=== PATIENT | female | born 1935 | race Caucasian/White ===

== ENCOUNTER 2016-09-27 11:32 | Observation (INO) ==
--- NOTE | 2016-09-27 14:32 | Hospitalist History & Physical ---
Assessment and Plan - Time spent with patient Time spent with patient: Greater than 30 minutes (1) Abdominal pain Status: Acute Assessment and plan: Patient will be admitted. Will provide IV fluids, IV analgesics and antiemetics as needed. Will consult GI for further evaluation. Current Visit: Yes (2) Hypertension Status: Chronic Assessment and plan: She is currently hemodynamically stable and blood pressure is well controlled. Will continue her current home regimen. Current Visit: No Qualifiers: Hypertension type: essential hypertension Qualified Code(s): I10 - Essential (primary) hypertension History of Present Illness Chief complaint: Abdominal pain History of present illness: Ms. Benavidez is a 81 year old white female who states that she was having some mid abdominal discomfort since last Sunday. She went to the emergency room at [facility] yesterday where she was admitted for further evaluation. During that evaluation she had CT scanning which was abnormal as referred to in the report. She denies any fever, chills, chest pain, shortness breath, nausea , vomiting, recent weight loss or weight gain, melena, hematochezia, hematemesis , dysuria, hematuria, urinary frequency urgency incontinence, seizures, syncope , diarrhea. She does have some chronic constipation and her last bowel movement was approximately 2 days ago. We were contacted to accept in transfer for further GI evaluation. Home Medications Medication Instructions Recorded Confirmed Type Atenolol 50 mg PO DAILY 12/01/14 09/27/16 History Omeprazole [Prilosec] 20 mg PO DAILY 12/01/14 09/27/16 History Fluticasone 50 Mcg Nasal [place] 1 spray BOTH NARES DAILY nasal 12/08/14 Rx [Flonase Nasal [place]] spray Magnesium Oxide 400 mg PO BID tablet 12/08/14 09/27/16 Rx amLODIPine [Norvasc] 5 mg PO DAILY tablet 12/08/14 09/27/16 Rx Diclofenac Sodium Tab [Voltaren] 75 mg PO DAILY 09/27/16 09/27/16 History Allergies Allergy/AdvReac Type Severity Reaction Status Date / Time No Known Allergies Allergy Verified 12/01/14 16:41 Medical,Surgical,& Family Hx - Medical History Cardio: History of: Hypertension HEENT: History of: Eye Problem (to have cataract sugery in February), Dental Problems (upper dentures) Gastrointestinal: History of: GERD - Surgical History Cardiac Surgeries: Patient Denies: Cardiac Surgery Thoracic Surgeries: Patient denies;: Organ Transplant Neurologic Surgeries: Patient denies: Neurologic Surgery HEENT Surgeries: Patient denies: Eye Surgery, Tonsilectomy & Adenoidectomy Abdominal Surgeries: Patient denies: Abdominal Surgery Reproductive Surgeries: Patient denies;: Genitourinary Surgery - Family History Family History: Reports;: Family Cancer (brother), Family Hypertension (father and brother) Comment Only: Family Diabetes (father), Family Heart Disease (bother and father) - Social History Smoking Status: Never smoker Frequency of Alcohol Use: None Type of Drug Use: None Marital Status: Lives With:: Spouse 12 point system: reviewed and no additional remarkable complaints except as stated Exam - Constitutional Vitals: Period Temp Pulse Resp BP Sys/[place]rington Pulse Ox Last 24 Hr 97.8 F 64 18 149/83 General appearance: no acute distress - Head Head exam: Present: normocephalic, atraumatic - Eye Eye exam: Present: EOMI Pupils: Present: MINH - ENT ENT exam: Present: normal exam - Neck Neck exam: Present: normal inspection. Absent: lymphadenopathy, meningismus, tenderness, thyromegaly - Respiratory Respiratory exam: Present: clear to auscultation bilaterally. Absent: rales, rhonchi, wheezes - Cardiovascular Cardiovascular exam: Present: regular rate and rhythm. Absent: gallop, JVD, rubs, tachycardia - GI/Abdominal GI/Abdominal exam: Present: normal bowel sounds, soft. Absent: mass, tenderness , rebound - Extremities Exam Extremities exam: Absent: calf tenderness, edema - Back Exam Back exam: Present: normal inspection - Neurological Exam Neurological exam: Present: alert, oriented X3, CN II-XII intact. Absent: motor sensory deficit - Psychiatric Psychiatric exam: Present: normal affect, normal mood. Absent: agitated, anxious - Skin Skin exam: Present: warm, dry. Absent: erythema, petechiae, rash Results - Diagnostic Findings Procedure: CT Abdomen and Pelvis: report reviewed by me
[2016-09-27] MEDS ORDERED: MORPHINE 2 MG/1 ML SYRINGE IV PRN (14:34)
[2016-09-27] MEDS ORDERED: ONDANSETRON 4 MG/2 ML VIAL IV PRN (14:34)
--- NOTE | 2016-09-27 15:02 | Gastrointestinal Consult Note ---
<Nicci Michaud - Last Filed: 09/27/16 14:56> Assessment and Plan (1) Abdominal pain Status: Acute Assessment and plan: 7/5-1 week history of generalized abdominal pain, worsened by eating. No other associated symptoms. CT of abdomen/pelvis with IV contrast findings noted as below. Obtain prior endoscopy records from [facility]. Plan for tentative EGD tomorrow to further evaluate. Plan an addendum to follow by Dr. Taveras. Current Visit: Yes History of Present Illness Chief complaint: Abdominal pain History of present illness: Ms. Benavidez is a 81 year old female who was admitted to the hospital after transfer from [facility] for complaints of abdominal pain. Patient is a good historian and family is present during visit to assist as needed. Patient has no prior records in our facility database. Patient states that approximately 1 week ago she had a fairly sudden onset of generalized abdominal pain. She states that the pain seemed to be precipitated by meals but does not recall any measures that improved her pain. The pain would occur randomly since onset until the last couple of days when it became more consistent and severe nature. The pain was not associated with any other factors including nausea, vomiting, fever, chills, weight loss. She states that she did have some mild constipation over the last week however had a bowel movement 2 days ago but states this is not her normal pattern. She denies any melena or hematochezia. She states she does have some mild dysphagia at times however it is not consistent. She also states she has reflux but this is fairly controlled with her Prilosec. Patient denies any NSAID use or anticoagulants. She is noted to have Voltaren listed on her medication list but she states the only thing she does take is Tylenol. She has a history of colon cancer in her brother who was diagnosed at the age of 21 and is now however that was not related to his cancer. She denies a family history of gallbladder disease in the past. She has no prior surgical history. The only other past medical history includes hypertension and cataract surgery. She states that she is relatively healthy and her blood pressure is well controlled. She states that she went to [facility] on yesterday when the pain became more severe and was admitted for further workup. She had a CT of the abdomen and pelvis with IV contrast. The report findings were reviewed and showed abnormal circumferential bowel wall thickening along the gastric antrum which was highly concerning for gastric neoplasm causing partial gastric outlet obstruction, adjacent lymphadenopathy and moderate hiatal hernia. She has had prior endoscopy done by Dr. Polk at [facility] in the last couple of years, in which the spouse states there were no acute findings. Home Medications Medication Instructions Recorded Confirmed Type Atenolol 50 mg PO DAILY 12/01/14 09/27/16 History Omeprazole [Prilosec] 20 mg PO DAILY 12/01/14 09/27/16 History Fluticasone 50 Mcg Nasal [place] 1 spray BOTH NARES DAILY nasal 12/08/14 Rx [Flonase Nasal [place]] spray Magnesium Oxide 400 mg PO BID tablet 12/08/14 09/27/16 Rx amLODIPine [Norvasc] 5 mg PO DAILY tablet 12/08/14 09/27/16 Rx Diclofenac Sodium Tab [Voltaren] 75 mg PO DAILY 09/27/16 09/27/16 History Allergies Allergy/AdvReac Type Severity Reaction Status Date / Time No Known Allergies Allergy Verified 12/01/14 16:41 Medical,Surgical,& Family Hx - Medical History Cardio: History of: Hypertension HEENT: History of: Eye Problem (to have cataract sugery in February), Dental Problems (upper dentures) Gastrointestinal: History of: GERD - Surgical History Cardiac Surgeries: Patient Denies: Cardiac Surgery Thoracic Surgeries: Patient denies;: Organ Transplant Neurologic Surgeries: Patient denies: Neurologic Surgery HEENT Surgeries: Patient denies: Eye Surgery, Tonsilectomy & Adenoidectomy Abdominal Surgeries: Patient denies: Abdominal Surgery Reproductive Surgeries: Patient denies;: Genitourinary Surgery - Family History Family History: Reports;: Family Cancer (brother), Family Hypertension (father and brother) Comment Only: Family Diabetes (father), Family Heart Disease (bother and father) - Social History Smoking Status: Never smoker Frequency of Alcohol Use: None Type of Drug Use: None 12 point system: reviewed and no additional remarkable complaints except as stated Exam - Constitutional Vitals: Period Temp Pulse Resp BP Sys/Arrington Pulse Ox Last 24 Hr 97.8 F 64 18 149/83 General appearance: normal weight, no acute distress - Head Head exam: Present: normal inspection, normocephalic - Eye Eye exam: Present: other (Lids and conjunctivae unremarkable). Absent: scleral icterus - ENT ENT exam: Present: normal exam, normal oropharynx - Neck Neck exam: Present: normal inspection - Respiratory Respiratory exam: Present: clear to auscultation bilaterally. Absent: rales, rhonchi, wheezes - Cardiovascular Cardiovascular exam: Present: regular rate and rhythm. Absent: diastolic murmur , JVD, systolic murmur - GI/Abdominal GI/Abdominal exam: Present: normal bowel sounds, tenderness (Right upper quadrant), soft. Absent: ascites, distended, mass, organomegaly - Extremities Exam Extremities exam: Present: normal inspection, full ROM - Back Exam Back exam: Present: normal inspection - Neurological Exam Neurological exam: Present: alert, oriented X3 - Psychiatric Psychiatric exam: Present: normal affect, normal mood - Skin Skin exam: Present: normal color, warm, dry Results - Diagnostic Findings Procedure: CT Abdomen and Pelvis: report reviewed by me (Report from outside facility) <Edy Taveras - Last Filed: 09/27/16 17:29> History of Present Illness History of present illness: Ms. Benavidez is a 81 year old female Exam - Constitutional Vitals: Period Temp Pulse Resp BP Sys/[place]rington Pulse Ox Last 24 Hr 97.6 F-97.8 F 64-66 18-20 149-149/83-83 Results - Labs CBC & BMP: 09/27/16 15:20
[2016-09-27] MEDS: SODIUM CHLORIDE 0.9% 1,000 ML IV SCH ×2 (15:04→22:18)
[2016-09-27] MEDS: PANTOPRAZOLE 40 MG VIAL IV SCH (15:09)
[2016-09-27 16:02] LABS: Albumin 3.8 G/DL (3.4-5.0); Bilirubin,Total 0.4 MG/DL (0.2-1.0); Calcium 9.6 MG/DL (8.5-10.1); Magnesium 2.2 MG/DL (1.8-2.4); Osmolality,Calculated 267.2 MOS/KG (273-304); Potassium 4.2 MMOL/L (3.5-5.1); Total Protein 6.5 G/DL (6.4-8.3)
[2016-09-27 17:56] LABS: Basophils # 0.1 10*3/uL (0.0-0.2); Basophils % 0.6 % (0.0-0.8); Eosinophils # 0.1 10*3/uL (0.0-0.87); Eosinophils % 1.3 % (0.00-10.9); Hematocrit 32.4 VOL% (35.7-47.0); Hemoglobin 11.2 GM/DL (12.0-16.0); Immature Granulocytes % 0.3 %; Immature Granulocytes Absolute 0.02 #; Lymphocytes # 2.1 10*3/uL (1.4-4.0); Lymphocytes % 26.1 % (21.3-54.2); Mean Corpuscular HGB Conc 34.6 GM/DL (32-36); Mean Corpuscular Hemoglobin 34 PG (27-34); Mean Corpuscular Volume 97.3 FL (87-102); Mean Platelet Volume 9.8 FL (9.6-12.0); Monocytes # 0.7 10*3/uL (0.11-0.8); Monocytes % 8.5 % (1.7-12.7); Neutrophils % 63.2 % (38.7-73.9); Platelet Count 349 T/CUMM (130-400); Red Blood Count 3.33 MC/CUMM (3.8-5.5); Red Cell Distribution Width 12.5 % (9.3-17.3); White Blood Count 7.8 T/CUMM (4-12)
[2016-09-27] MEDS: MAGNESIUM OXIDE 400 MG TABLET PO SCH (21:19)
[2016-09-27] MEDS: ACETAMINOPHEN 325 MG TABLET PO PRN (22:11)
[2016-09-28 05:32] LABS: Basophils # 0.1 10*3/uL (0.0-0.2); Eosinophils # 0.2 10*3/uL (0.0-0.87); Eosinophils % 2.6 % (0.00-10.9); Hematocrit 32.8 VOL% (35.7-47.0); Hemoglobin 11.3 GM/DL (12.0-16.0); Immature Granulocytes % 0.2 %; Immature Granulocytes Absolute 0.01 #; Lymphocytes # 1.4 10*3/uL (1.4-4.0); Lymphocytes % 23.7 % (21.3-54.2); Mean Corpuscular HGB Conc 34.5 GM/DL (32-36); Mean Corpuscular Hemoglobin 33 PG (27-34); Mean Corpuscular Volume 96.8 FL (87-102); Mean Platelet Volume 9.4 FL (9.6-12.0); Monocytes # 0.6 10*3/uL (0.11-0.8); Monocytes % 10.3 % (1.7-12.7); Neutrophils # 3.6 10*3/uL (1.4-7.4); Neutrophils % 62.2 % (38.7-73.9); Platelet Count 337 T/CUMM (130-400); Red Blood Count 3.39 MC/CUMM (3.8-5.5); Red Cell Distribution Width 12.5 % (9.3-17.3); White Blood Count 5.8 T/CUMM (4-12)
[2016-09-28 06:02] LABS: Calcium 9.2 MG/DL (8.5-10.1); Osmolality,Calculated 280.1 MOS/KG (273-304); Potassium 4.1 MMOL/L (3.5-5.1)
[2016-09-28] MEDS: SODIUM CHLORIDE 0.9% 1,000 ML IV SCH (06:50)
[2016-09-28] MEDS: PANTOPRAZOLE 40 MG VIAL IV SCH (09:35)
--- NOTE | 2016-09-28 10:41 | History and Physical Update ---
History and Physical Update - Physical Exam Mental Status: alert and oriented Heart: regular rate and rhythm Lung: clear to auscultation Abdomen: within normal limits Vitals: within normal limits
[2016-09-28] MEDS ORDERED: LIDOCAINE 2% 5 ML VIAL ONE (10:43)
[2016-09-28] MEDS ORDERED: PROPOFOL 200 MG/20 ML VIAL IV ONE (10:43)
--- NOTE | 2016-09-28 10:57 | Operative Note ---
Date of procedure: 09/28/16 Pre-op diagnosis: Abdominal pain with abnormal CT Procedure: EGD with biopsy 81-year-old female admitted with abdominal pain CT suggests thickening of the antrum of the stomach and possible gastric outlet obstruction now for EGD. Informed consent was obtained for the patient. She was sedated with MAC anesthesia per anesthesia protocol. Patient placed in left lateral decubitus position the Olympus flexible video upper endoscope was inserted oral cavity under direct vision the esophagus was intubated. Findings: Esophagus-normal proximal mid esophageal mucosa distal esophagus with large hiatal hernia no esophagitis, stricture, varices or Rivera's was identified. Stomach-normal insufflation in the antrum of the stomach there are 2 kissing ulcers each measuring approximately 6 mm. There is significant antral edema associated with these biopsies were taken. Remaining stomach is normal to direct retroflexed views of the body fundus and cardia the stomach. Pylorus-prepyloric edema as above no pyloric abnormality seen no gastric outlet obstruction. Duodenum-normal for the bulb duodenum to the third portion of the duodenum. The procedure terminated placed our procedure well she is discharged recovery in good condition. Postop diagnosis: 1. 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 Continue twice daily PPI treatment. While there is no clear evidence of gastric outlet obstruction physiologically she is most likely having some issues with slow gastric emptying and will take several weeks for significant improvement. 2. Will need repeat EGD in 6-8 weeks to verify ulcer healing 3. Avoid nonsteroidals. Anesthesia: MAC Surgeon / Physician: Edy Taveras Estimated blood loss: none Specimens: other (Gastric ulcers and edema) Condition: stable Disposition: post procedure unit Results - Labs CBC & BMP: 09/28/16 04:41 09/28/16 04:41 Discharge Plan - Discharge Medications No Action Omeprazole [Prilosec] 20 mg PO DAILY Atenolol 50 mg PO DAILY Fluticasone 50 Mcg Nasal [place] [Flonase Nasal [place]] 1 spray BOTH NARES DAILY nasal spray Magnesium Oxide 400 mg PO BID tablet amLODIPine [Norvasc] 5 mg PO DAILY tablet Diclofenac Sodium Tab [Voltaren] 75 mg PO DAILY - Follow Up or Referral - Forms/Instructions
--- NOTE | 2016-09-28 11:53 | Anesthesia Post-Op ---
Anesthesia Post OP - Post Ansesthetic Evaluation Patient seen in post op: Yes Resp: within normal limits CV: within normal limits Mental: within normal limits Temp: within normal limits [id number]: within normal limits Nausea and Vomiting: within normal limits Pain: within normal limits
[2016-09-28] MEDS: ATENOLOL 50 MG TABLET PO SCH (13:13)
[2016-09-28] MEDS: amLODIPine 5 MG TABLET PO SCH (13:13)
[2016-09-28] MEDS: MAGNESIUM OXIDE 400 MG TABLET PO SCH ×2 (13:13→20:58)
[2016-09-28] MEDS: ACETAMINOPHEN 325 MG TABLET PO PRN (13:21)
[2016-09-28] MEDS: FLUTICASONE 50 MCG NASAL SPRAY 16 GM BOTTLE BOTH NARES SCH (13:22)
--- NOTE | 2016-09-28 15:31 | Hospitalist Progress Note ---
Assessment and Plan (1) Hypertension Status: Chronic Assessment and plan: Controlled Current Visit: No Qualifiers: Hypertension type: essential hypertension Qualified Code(s): I10 - Essential (primary) hypertension (2) Abdominal pain Status: Acute Assessment and plan: EGD today with acute peptic ulcer disease GI managing continue ppi bid will need repeat egd in 6-8 weeks full liquid diet Current Visit: Yes Hospitalist: Subjective Interval history: No acute events overnight. Patient denies abdominal pain. EGD today with peptic ulcer disease. Exam - Constitutional Vitals: Period Temp Pulse Resp BP Sys/[place]rington Pulse Ox Last 24 Hr 97.5 F-97.8 F 66-87 14-20 119-167/54-83 93-100 General appearance: normal weight - Head Head exam: Present: normocephalic, atraumatic - Eye Eye exam: Present: EOMI Pupils: Present: MINH - ENT ENT exam: Present: normal exam - Neck Neck exam: Present: normal inspection - Respiratory Respiratory exam: Present: clear to auscultation bilaterally. Absent: rhonchi, wheezes - Cardiovascular Cardiovascular exam: Present: regular rate and rhythm - GI/Abdominal GI/Abdominal exam: Present: normal bowel sounds, soft. Absent: tenderness, rebound - Extremities Exam Extremities exam: Present: normal inspection - Back Exam Back exam: Present: normal inspection - Neurological Exam Neurological exam: Present: alert, oriented X3 - Psychiatric Psychiatric exam: Present: normal affect, normal mood - Skin Skin exam: Present: warm, intact Results - Labs CBC & BMP: 09/28/16 04:41 09/28/16 04:41
[2016-09-29] MEDS: SODIUM CHLORIDE 0.9% 1,000 ML IV SCH ×3 (00:15→06:12)
[2016-09-29] MEDS: ACETAMINOPHEN 325 MG TABLET PO PRN (05:59)
[2016-09-29] MEDS: MAGNESIUM OXIDE 400 MG TABLET PO SCH (09:28)
[2016-09-29] MEDS: amLODIPine 5 MG TABLET PO SCH (09:29)
[2016-09-29] MEDS: ATENOLOL 50 MG TABLET PO SCH (09:29)
[2016-09-29] MEDS: FLUTICASONE 50 MCG NASAL SPRAY 16 GM BOTTLE BOTH NARES SCH (09:30)
[2016-09-29] MEDS: PANTOPRAZOLE 40 MG VIAL IV SCH (09:33)
--- NOTE | 2016-09-29 09:33 | Gastrointestinal Progress Note ---
<Nicci Michaud - Last Filed: 09/29/16 09:30> Assessment and Plan (1) Abdominal pain Status: Acute Assessment and plan: 09/29-EGD findings of acute peptic ulcer disease. Pathology report pending at present. Advance to soft diet. Awaiting pathology report prior to potential discharge. Plan an addendum to follow Dr. Taveras 09/27-1 week history of generalized abdominal pain, worsened by eating. No other associated symptoms. CT of abdomen/pelvis with IV contrast findings noted as below. Obtain prior endoscopy records from [facility]. Plan for tentative EGD tomorrow to further evaluate. Plan an addendum to follow by Dr. Taveras. Current Visit: Yes Gastroenterology - PN: Subj Interval history: CC: Abdominal pain Patient is seen awake and alert ambulating around room. Spouse at bedside. States she had an uneventful night. Denies any abdominal pain, nausea or vomiting. She is tolerating full liquid diet at this time without any difficulty. She is requesting to advance her diet if possible. Abdomen is soft , nontender. Pathology report is still pending this morning from biopsies on EGD yesterday. Patient and spouse again deny any NSAID use. ROS: Denies shortness of breath or chest pain Exam (Progress Note) - Constitutional Vitals: Period Temp Pulse Resp BP Sys/[place]rington Pulse Ox Last 24 Hr 97.0 F-98.3 F 63-87 14-22 119-167/54-84 93-100 General appearance: normal weight, no acute distress - Head Head exam: Present: normal inspection, normocephalic - Eye Eye exam: Present: other (Lids and conjunctive are unremarkable). Absent: scleral icterus - ENT ENT exam: Present: normal exam, normal oropharynx - Neck Neck exam: Present: normal inspection - Respiratory Respiratory exam: Present: clear to auscultation bilaterally. Absent: rales, rhonchi, wheezes - Cardiovascular Cardiovascular exam: Present: regular rate and rhythm. Absent: diastolic murmur , JVD, systolic murmur - GI/Abdominal GI/Abdominal exam: Present: normal bowel sounds, soft. Absent: ascites, distended, mass, organomegaly, tenderness - Extremities Exam Extremities exam: Present: normal inspection, full ROM - Back Exam Back exam: Present: normal inspection - Neurological Exam Neurological exam: Present: alert, oriented X3 - Psychiatric Psychiatric exam: Present: normal affect, normal mood - Skin Skin exam: Present: normal color, warm, dry Results - Labs CBC & BMP: 09/28/16 04:41 09/28/16 04:41 Lab Results: I have reviewed the past 24 hour labs Specialty Discharge - Follow Up or Referrals Follow up with: Edy Taveras MD [Physician] - (6-8 weeks for EGD) <Edy Taveras - Last Filed: 09/29/16 15:32> Exam (Progress Note) - Constitutional Vitals: Period Temp Pulse Resp BP Sys/[place]rington Pulse Ox Last 24 Hr 97.0 F-98.3 F 61-68 18-22 136-157/72-84 93-99 Results - Labs CBC & BMP: 09/28/16 04:41 09/28/16 04:41
[2016-09-29] MEDS ORDERED: POLYETHYLENE GLYCOL POWDER 17 GM PACK PO SCH (10:00)
--- NOTE | 2016-09-29 13:22 | Pathology Report from [facility] ---
[facility] ACCESSION # : [id number] PATIENT NAME : Lindy Benavidez ORDERING DR : SAMIR ALTMAN MD CLINICAL HX: Abnormal CT POST-OP DX: Gastric ulcer SPECIMEN INFO: Gastric GROSS DESCRIPTION: The specimen is received in formalin labeled with the patients name and consists of fragments of garcia mucosal tissue measuring 1.1 x 0.5 cm. Submitted in one cassette. DIAGNOSIS FOR LINDY BENAVIDEZ: GASTRIC BIOPSIES: Chronic antral gastritis with focal ulceration. H. pylori not seen on H&E or special stain with appropriate control. COLLECTED DATE: 09/28/2016 [facility] REPORT DATE: 09/29/2016 ELECTRONICALLY SIGNED BY: Baldo Burr M.D. 09/29/2016 - 10:37:24 [facility]
--- NOTE | 2016-09-29 15:03 | Discharge Summary ---
Hospital Course - Hospital Course Hospital Course: Ms. Benavidez is a 81 year old white female who presented with mid abdominal discomfort for 5 days. She went to the emergency room at [facility] the day previously where she was admitted for further evaluation. During that evaluation she had CT scan which showed abnormal circumferential bowel wall thickening along the gastric antrum which was highly concerning for gastric neoplasm causing partial gastric outlet obstruction, adjacent lymphadenopathy and moderate hiatal hernia. She was admitted to the hospitalist service for further evaluation. Gastroenterology was consulted. EGD was performed 09/28/16 which showed acute peptic ulcer disease. Pathology returned today which demonstrated chronic antral gastritis with focal ulceration. She will take protonix BID and need repeat EGD in 6-8 weeks. Her diet has been advanced without incident. She has now reached maximal benefit of inpatient stay and will be discharged home. - Time spent with patient Time with patient DS: Less than 30 minutes (25) Diagnosis - Discharge Diagnosis (1) Hypertension Status: Chronic (2) Abdominal pain Status: Resolved (3) Peptic ulcer disease Status: Chronic Specialty Discharge - Follow Up or Referrals Follow up with: Edy Taveras MD [Physician] - (6-8 weeks for EGD) Discharge Plan - Discharge Data Disposition: Disch To Home/Self Care Condition at Discharge: Stable Discharge Diet: advance to your usual diet Activity: increase activity as tolerated Hygiene: no restrictions Weight Bearing at Discharge: weight bear as tolerated Contact your physician if you experience:: Nausea/Vomiting, pain uncontrolled by pain medications - Discharge Medications New Pantoprazole Tab [Protonix Tab] 40 mg PO BID #60 tablet Continue Atenolol 50 mg PO DAILY Fluticasone 50 Mcg Nasal [place] [Flonase Nasal [place]] 1 spray BOTH NARES DAILY nasal spray Magnesium Oxide 400 mg PO BID tablet amLODIPine [Norvasc] 5 mg PO DAILY tablet Discontinued Omeprazole [Prilosec] 20 mg PO DAILY Diclofenac Sodium Tab [Voltaren] 75 mg PO DAILY - Follow Up or Referral - Forms/Instructions Exam - Constitutional Vitals: Period Temp Pulse Resp BP Sys/[place]rington Pulse Ox Last 24 Hr 97.0 F-98.3 F 61-68 18-22 136-157/72-84 93-99 General appearance: over weight - Head Head exam: Present: normocephalic, atraumatic - Eye Eye exam: Present: EOMI Pupils: Present: MINH - ENT ENT exam: Present: normal exam - Neck Neck exam: Present: normal inspection - Respiratory Respiratory exam: Present: clear to auscultation bilaterally - Cardiovascular Cardiovascular exam: Present: regular rate and rhythm - GI/Abdominal GI/Abdominal exam: Present: normal bowel sounds, soft. Absent: tenderness, rebound - Extremities Exam Extremities exam: Present: normal inspection - Back Exam Back exam: Present: normal inspection - Neurological Exam Neurological exam: Present: alert, oriented X3 - Psychiatric Psychiatric exam: Present: normal affect, normal mood - Skin Skin exam: Present: warm, intact DS: Provider Date of admission: 09/27/16 13:44 Primary care physician: Meet Edwards MD Attending physician on admission: Jeanine Long Consults: 09/27/16 14:34 Consult to Physician [CONS] Routine Comment: Consulting Provider: Edy Taveras 09/28/16 15:14 Consult to Occupational Therapy [CONS] Routine Reason for Occupational Therapy: Evaluate and Treat Consult to Physical Therapy [CONS] Routine Reason for Physical Therapy: Evaluate and Treat Discharging clinician: Xiomara Morley MD
[2016-09-29 15:38] VITALS: BP 132/79
== END 2016-09-29 16:00 | disposition home or self-care (01) ==
LOC: N.2E 13:44 → SUATTDRO 13:44 → INTOOBSV 13:44
PROVIDERS: ADMIT Hospitalist; ATTEND Internal Medicine